=== PATIENT | male | born 1945 | race American Indian/Alaskan Native ===

== ENCOUNTER 2019-06-10 17:38 | Inpatient (IN) | payer MEDICARE, OTHER ==
[~2019-06-10] VITALS: Ht 172.7 cm; Wt 123.8 kg
[~2019-06-10 17:38] MED LIST: ACCUNEB0.63 MG/3 IH; ADULT LOW DOSE81 MG PO; ALBUTEROL0.63 MG/3 INH; ALBUTEROL2.5 MG/3 M INH; ALLERGY EYE DRO10 ML OU; ARTIFICIAL TEA1 EACH OP; ASCORBIC ACID250 MG PO; ASPIR-LOW81 MG PO; AUGMENTIN XR1 TABLET PO; BASLE60 GM TOP; BUPROPION HCL100 MG PO; CHANTIX1 MG PO; CITALOPRAM HBR20 MG PO; COREG12.5 MG PO; COREG6.25 MG PO; DOCUSATE SODIU100 MG PO; DUONEB 0.5 MG-33 ML IH; DUONEB 0.5 MG-33 ML NEB; ETODOLAC200 MG PO; FERROUS GLUCON324 M2 PO; FERROUS GLUCON325 M1 PO; FUROSEMIDE40 MG PO; GABAPENTIN400 MG PO; GABAPENTIN600 MG PO; HYDROCHLOROTH12.5 MG PO; HYDROCHLOROTHIA25 MG PO; HYDROCODON-ACE1 EAC3 PO; IMDUR30 MG PO; KLOR-CON 1010 MEQ PO; LEVAQUIN750 MG PO; LIPITOR20 MG PO; LISINOPRIL10 MG PO; LUBRICANT EYE1 EACH; MORPHINE SULFAT30 M4 PO; MS CONTIN30 MG PO; NICOTINE PATCH1 EACH TD; NITROSTAT0.4 MG SL; OCUVITE LUTEIN1 EAC1 PO; OMEPRAZOLE20 M1 PO; OMEPRAZOLE20 MG PO; OXYCODONE HCL20 MG PO; OXYCODONE HCL5 MG PO; PAIN RELIEF325 MG PO; PERCOCET 10-321 EACH PO; PERCOCET 5-3251 EACH PO; PREDNISONE20 MG PO; PREDNISONE50 MG PO; PROVENTIL HFA6.7 GM INH; QVAR7.3 G1 IH; SENNA-DOCUSATE1 EAC1 PO; SPIRIVA18 MCG INH; SYMBICORT 16010.2 GM INH; TERAZOSIN HCL2 MG PO; VITAMIN D1000 UNI1 PO; [UNRECOGNIZED DRUG - OTHER] PO
--- NOTE | 2019-06-10 21:00 | NUR ---
PATIENT ARRIVED VIA STRETCHER. TRANSFERED WITH ASSISTANCE TO BED. TOLERATED POORLY. 3L NC IN PLACE, HUMIDIFICATION PLACED. PATIENT O2 SAT 94%. VS STABLE. PATIENT IN DROPLET AND CONTACT PRECAUSTIONS PER POLICY. ORAL TEMP 99.4 F. PATIENT SAT AT EDGE OF BED AND HAD SOME SODA. NO NAUSEA AT THIS TIME. DIMINISHED LUNG SOUNDS WITH WHEEZES IN [place]HA BASES.
--- NOTE | 2019-06-10 23:54 | NUR ---
PATIENT VOIDED 100 ML CLEAR YELLOW URINE USING THE URNAL WITH ASSISTANCE. PATIENT HAD TO STRAIN TO VOID, REPORTS THIS HIS NORMAL. LUNG SOUNDS ARE DIMINISHED THROUGHOUT. EXP WHEEZES RUL. TOLERATING 3L NC, NO NEW SIGNS OF BLEEDING OR EMESIS. IV FLUIDS PER ORDER, SITE WNL. PATIENT APPEARS TO HAVE BROKE HIS FEVER, DIAPHROETIC AND WARM. ORAL TEMP 98.4 F. PATIENT DENIES ANY OTHER NEEDS. CALL LIGHT IN REACH.
--- NOTE | 2019-06-11 02:15 | NUR ---
PATIENT APPEARS TO BE SLEEPING SOUNDLY. RR 24, O2 SAT 94% ON 3L NC. CALL LIGHT IN REACH.
--- NOTE | 2019-06-11 05:00 | NUR ---
PATIENT HAS BEEN SLEEPING SOUNDLY. WOKE EASILY TO VOICE/TOUCH. PATIENT REPORTS FEELING RESTED THIS MORNING. STATES "I HAVEN'T SLEPT THAT MUCH AT ONCE IN A WHILE". PATIENT TOLERATING 3L NC. LUNG SOUNDS ARE DIMINISHED THROUGHOUT WITH EXPIRTORY WHEEZES IN THE [place] BASES. PATIENT COUGHING AND HAS ESTIMATED 10ML OF BLOOD COUGHED UP. NO PHLEM NOTED. BLOOD IS THIN AND BRIGHT RED. ASSISTED PATIENT TO RINSE HIS MOUTH. UNABLE TO SEE BLEEDING INSIDE THE NASAL PASSAGE OR THROAT WITH PEN LIGHT. PATIENT DENIES FEELING GI UPSET. ASSISTED PATIENT TO USE URNAL. IV FLUIDS PER ORDER, SITE WNL. PATIENT PROVIDED A SODA PER REQUEST. NO OTHER NEEDS AT THIS TIME. CALL LIGHT IN REACH.
--- NOTE | 2019-06-11 06:17 | NUR ---
UPDATED ON PATIENT COUGHING UP BLOOD, HAVING A PAIN PATCH ON, AND THE NEED FOR A SINGLE VIEW XRAY PERFORMED IN THE ROOM VERSE TRANSPORTING THE PATIENT. NEW ORDERS FOR XRAY RECEIVED.
--- NOTE | 2019-06-11 08:11 | NUR ---
REPORT RECEIVED. DROPLET PRECAUTIONS IN PLACE. CALL LIGHT IN REACH.
--- NOTE | 2019-06-11 09:36 | NUR ---
ASSESSMENT COMPLETED. LUNGS COARSE. LARGE AMOUNT OF THICK BLOOD TINGED SPUTUM. SPUTUM CULTURE SENT TO LAB. DRIED BLOOD PRESENT IN BOTH NARES. SBA TO BSC FOR MED BM THEN TO [facility] FOR BREAKFAST. TRACE EDEMA BILAT LE. 97% ON 3L NC. PT IS ALERT AND ORIENTED. CALL LIGHT IN REACH. DENIES NEEDS. DR SWAIN IN ROOM.
--- NOTE | 2019-06-11 09:59 | NUR ---
DAUGHTER MELIA CALLED TO BRING IN PATIENTS HOME INHALERS. DAUGHTER AGREED TO BRING THEM AND DROP OFF AT SOFTWARE [employer]ITER.
--- NOTE | 2019-06-11 10:18 | NUR ---
DIONI REC COMPLETED USING FACILITY MAY.
--- NOTE | 2019-06-11 11:17 | NUR ---
PT ASSISTED TO USE URINAL. 160 ML OUT. UA SENT TO LAB. NASAL SPRAY GIVEN. TYLENOL FOR CHRONIC PAIN 07/23. AND SCHEDULED GABAPENTIN ADMINSITERED. CALL LIGHT IN REACH. PT DENIES FURTHER NEEDS.
--- NOTE | 2019-06-11 12:26 | NUR ---
PT AWAKE IN CHAIR. LUNCH PROVIDED. CALL LIGHT AND PERSONAL ITEMS WITHIN [facility].
--- NOTE | 2019-06-11 16:53 | NUR ---
PT ASSISTED SBA WITH FWW TO BSC. VOIDED 150ML. INCONT OF DARK BROWN/BLACK LIQUID STOOL. CLEANED PT UP CHANGED GOWN AND ATTENDS. DC'D TELE. SITTING BACK IN CHAIR. TYLENOL GIVEN FOR PAIN. TITRATED TO 1L NC SATURATIONS AT 95%. IS AT BEDSIDE. DENEIS NEEDS. CALL LIGHT IN REACH.
--- NOTE | 2019-06-11 18:24 | NUR ---
PT ARRIVED TO [facility] VIA CHAIR. VITALS TAKEN AND STABLE. TITRATED TO RA. 95% ON RA. ORIENTED TO ROOM. CALL LIGHT IN REACH. DENIES NEEDS.
--- NOTE | 2019-06-11 19:02 | NUR ---
SHIFT REPORT RECEIVED FROM DAYSHIFT JAVAD EVANS. PT AWAKE AND RESTING IN CHAIR, DENIES NEEDS. CALL LIGHT IN REACH.
--- NOTE | 2019-06-11 20:39 | NUR ---
ANSWERED CALL LIGHT. 1 PA TO BEDSIDE COMMODE USING WALKER. PATIENT VOIDED AND HAD A SMEAR BOWEL MOVEMENT COLOR BLACK. V/S AND I&O DONE AND CHARTED. PATIENT IS COUGHING. PATIENT IS UP ON THE CHAIR. CALL LIGHT WITHIN REACH. NO OTHER NEEDS AT THIS TIME.
--- NOTE | 2019-06-11 21:01 | EKG ---
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 rate has increased BY 43 BPM Nonspecific T wave abnormality no longer evident in Inferior leads Confirmed by ELIZABETH TOPETE MD ([id number]) on 06/11/2019 9:01:14 PM Electronically Signed By: ELIZABETH TOPETE MD 06/11/192100 PATIENT NAME: ADRIANA FOSS Electrocardiogram DATE OF : 49 PHYSICIAN: ELIZABETH TOPETE MD REPORT #: [id number] REPORT IS CONFIDENTIAL AND NOT TO BE RELEASED WITHOUT AUTHORIZATION
--- NOTE | 2019-06-11 21:45 | NUR ---
ASSESSMENT COMPLETE, SCHEDULED MEDS GIVEN (SEE EMAR). PT COMPLAINT WITH CARE, REPORTS TOLERABLE 5/10 GENERALIZED PAIN. VSS, PT ON RA, OCCASSIONAL COUGH NOTED. LUNG SOUNDS DIMINISHED. SCD'S IN PLACE. FRESH SODA PROVIDED, CALL LIGHT IN REACH. PT DENIES ADDITIONAL NEEDS, CALL LIGHT IN REACH.
--- NOTE | 2019-06-11 23:30 | NUR ---
THIS RN IN ROOM TO ANSWER CALL. PT ASSISTED WITH USE OF URINAL, 300MLS OUTPUT NOTED. O2 SAT AND HR SPOTCHECKED PER PT REQUEST, O2 SAT LOW 90'S, HR 80'S. PT INSTRUCTED TO CONTINUE DEEP BREATHING WHILE AWAKE. NO DISTRESS NOTED, PT RESTING IN BED. HOB ELEVATED. NO FURTHER NEEDS VERBALIZED, SCD'S IN PLACE. CALL LIGHT IN REACH.
--- NOTE | 2019-06-12 01:37 | NUR ---
PT RESTING IN BED WITH EYES CLOSED. RESPIRATIONS EVEN AND UNLABORED, NO DISTRESS NOTED. NASAL SPRAY HELD PT WAS SLEEPING. CALL LIGHT IN REACH.
--- NOTE | 2019-06-12 03:12 | NUR ---
THIS RN IN ROOM TO HELP PT ATTEMPT TO VOID. PT UNABLE TO VOID AT THIS TIME, URINAL IN PLACE. ASSESSMENT COMPLETE, NO NEW CHANGES OR CONCERNS. PAIN REMAINS TOLERABLE AT THIS TIME, PT ON RA. NO DISTRESS NOTED, LUNG SOUNDS DIMINISHED. REPORTS SOB WITH EXERTION. SCD'S IN PLACE, NO FURTHER NEEDS. CALL LIGHT IN REACH.
--- NOTE | 2019-06-12 06:06 | NUR ---
PT AWAKE AND RESTING IN BED, FIDGETS IN BED AND RESTLESS AT TIMES. VSS, PT ON RA. LUNG SOUNDS DIMINISHED, NO DISTRESS NOTED. PT TALKS TO SELF, APPEARS COMFORTABLE. IV SITES SALINE LOCKED, BED ALARM ON FOR SAFETY. CALL LIGHT IN REACH.
--- NOTE | 2019-06-12 06:45 | NUR ---
O2 SAT ON RA MID TO UPPER 80'S, PT PLACED ON 1.5-2LNC, O2 NOW MAINTAINING AT LOW TO MID 90'S. PT REPORTS GENERALIZED DISCOMFORT IN BACK, PRN TYLENOL GIVEN. URINAL IN PLACE TO ATTEMPT TO VOID. PT DENIES ADDITIOANL NEEDS, CALL LIGHT IN REACH.
--- NOTE | 2019-06-12 08:01 | NUR ---
REPORT RECEIVED FROM ROJAS MITTAL RN. PT IN BED. PRECAUTIONS IN PLACE. CALL LIGHT IN REACH.
--- NOTE | 2019-06-12 09:00 | NUR ---
IN ROOM FOR ASSESSMENT. ASSISTED PT UN TO CHAIR. REPORTING HIP PAIN FROM LAYING DOWN. SATURATIONS 92% ON RA. PT REQUESTION OXYGEN FOR COMFORT SO 1L NC PLACED. BEDBATH COMPLETED. BREAKFAST ORDERED. MEDICAITONS GIVEN. CALL LIGHT IN REACH. DENIES FURTHER NEEDS.
--- NOTE | 2019-06-12 10:19 | NUR ---
PHYSICAL THERAPY IN TO WORK WITH PT.
--- NOTE | 2019-06-12 10:52 | NUR ---
DR TOPETE IN TO ROOM.
[2019-06-12] MEDS ORDERED: OSELTAMIVIR PHO75 MG PO (11:08)
[2019-06-12] MEDS ORDERED: LEVOFLOXACIN500 MG PO (11:08)
[2019-06-12] MEDS ORDERED: DEEP SEA44 ML NAS (11:19)
--- NOTE | 2019-06-12 13:12 | NUR ---
DISCHARGE INSTRUCTIONS AND EDUCATION PROVIDED. DISCUSSED MEDICATION SCHEDULE. WHEELED OUT WITH MASK. IV CATH INTACT.
== END 2019-06-12 12:48 | disposition home or self-care (01) | DRG 193 ==
LOC: ED 17:38 → CCU 20:04 → MS 06-11 18:31
PROVIDERS: ADMIT Internal Medicine
DX: J18.9 Pneumonia, unspecified organism (principal); G93.41 Metabolic encephalopathy; J96.11 Chronic respiratory failure with hypoxia; R04.0 Epistaxis; I10 Essential (primary) hypertension; J43.9 Emphysema, unspecified; N40.0 Benign prostatic hyperplasia without lower urinary tract symptoms; G47.33 Obstructive sleep apnea (adult) (pediatric); K21.9 Gastro-esophageal reflux disease without esophagitis; E78.5 Hyperlipidemia, unspecified; F43.10 Post-traumatic stress disorder, unspecified; G89.4 Chronic pain syndrome; Z88.8 Allergy status to other drugs, medicaments and biological substances; Z79.899 Other long term (current) drug therapy; Z79.82 Long term (current) use of aspirin; Z79.51 Long term (current) use of inhaled steroids
CPT/HCPCS: 36415; 36600; 71045; 80053; 82803; 83605; 83735; 83880; 84484; 85025; 85610; 85730; 86850; 86900; 86901; 87040; 87070; 87077; 87186; 87205; 87449; 87502; 87899; 93005; 93010; 94640; 96374; 97162; 99285-25; J1100; J1956; J7121

== ENCOUNTER 2020-02-14 14:41 | Emergency (ER) | payer MEDICARE, OTHER ==
[~2020-02-14] VITALS: Ht 172.7 cm; Wt 123.8 kg
[~2020-02-14 14:41] MED LIST changes: +DEEP SEA44 ML NAS; +LEVOFLOXACIN500 MG PO; +OSELTAMIVIR PHO75 MG PO
[2020-02-14] MEDS ORDERED: CHANTIX0.5 MG PO (16:43)
== END 2020-02-14 19:03 | disposition home or self-care (01) ==
LOC: ED 14:41
DX: D50.9 Iron deficiency anemia, unspecified (principal); I11.0 Hypertensive heart disease with heart failure; I50.9 Heart failure, unspecified; F43.10 Post-traumatic stress disorder, unspecified; I25.10 Atherosclerotic heart disease of native coronary artery without angina pectoris; J44.9 Chronic obstructive pulmonary disease, unspecified; Z87.891 Personal history of nicotine dependence; Z88.8 Allergy status to other drugs, medicaments and biological substances; Z91.018 Allergy to other foods; Z91.030 Bee allergy status; Z79.899 Other long term (current) drug therapy; Z79.82 Long term (current) use of aspirin
CPT/HCPCS: 36415; 80053; 85025; 85045; 99284